=== PATIENT | male | born 1965 | race Caucasian/White ===

== ENCOUNTER 2019-05-26 19:48 | Inpatient (IN) ==
[2019-05-26] MEDS ORDERED: 0.9 % Sodium Chloride 1,000 ML IVC ONE (20:08)
[2019-05-26] MEDS ORDERED: Isovue-370 500 ML BOTTLE IVP ONE (20:08)
[2019-05-26 20:38] LABS: Basophils % 0.4 %; Eosinophils # 0.3 K/mcL (0.0-0.6); Eosinophils % 3.1 %; Hemoglobin 13.1 g/dL (12.9-16.9); Immature Granulocytes % 0.3 % (0-4); Lymphocytes # 1.7 K/mcL (0.6-4.6); Lymphocytes % 18.4 %; Mean Corpuscular HGB Conc 30.5 g/dL (31.6-35.5); Mean Corpuscular Hemoglobin 27.4 pg (28.0-33.3); Monocytes # 0.8 K/mcL (0.0-1.3); Monocytes % 8.3 %; Neutrophils # 6.5 K/mcL (1.6-8.9); Platelet Count 197 K/mcL (140-400); Red Blood Count 4.78 M/mcL (4.19-5.50); Red Cell Distribution Width 14.5 % (11.5-14.5); Segmented Neutrophils % 69.5 %; White Blood Count 9.4 K/mcL (4.3-11.1)
[2019-05-26 20:49] LABS: Bilirubin,Urine Negative (Negative); Blood,Urine Negative (Negative); Clarity,Urine Clear (Clear); Color,Urine Yellow (Yellow); Glucose,Urine (UA) Normal (Normal); Ketones,Urine Negative (Negative); Leukocyte Esterase,Urine Negative (Negative); Nitrite,Urine Negative (Negative); Protein,Urine Negative (Neg-Trace); Specific Gravity,Urine 1.024 (1.010-1.025); Urobilinogen,Urine Normal (Normal)
[2019-05-26 20:59] LABS: Alanine Aminotransferase 16 Units/L (7-52); Albumin 3.6 g/dL (3.5-5.7); Albumin/Globulin Ratio 1.2 (1.1-2.2); Alkaline Phosphatase 62 Units/L (34-104); Aspartate Amino Transferase 17 Units/L (13-39); BUN/Creatinine Ratio 19 (6-26); Bilirubin,Direct 0.1 mg/dL (0.0-0.2); Bilirubin,Indirect 0.3 mg/dL (0.0-1.2); Bilirubin,Total 0.4 mg/dL (0.3-1.0); Blood Urea Nitrogen 19 mg/dL (6-20); Calcium 9.1 mg/dL (8.6-10.3); Carbon Dioxide 26 mEq/L (23-29); Chloride 103 mEq/L (98-107); Globulin 2.9 g/dL (2.4-3.5); Glucose 99 mg/dL (70-105); Osmolality,Calculated 284 (280-300); Potassium 3.6 mEq/L (3.5-5.1); Sodium 136 mEq/L (136-145); Total Protein 6.5 g/dL (6.4-8.9); eGFR For African Americans > 60 (> 60); eGFR For Non-African Americans > 60 (> 60)
--- NOTE | 2019-05-26 22:15 | Emergency Department Note ---
Disposition Clinical Impression: Cellulitis of abdominal wall Disposition: Admitted As Inpatient Condition: Good Referrals: Eileen Valdes MD [Primary Care Provider] - Forms: ED Satisfaction Letter, Work/School Release Time of Disposition: 22:37 General Adult HPI - General Chief complaint: ED General Medical Stated complaint: Cellulitis in lower ABD Time Seen by Provider: 05/26/19 19:55 Source: patient Limitations: no limitations Nursing Notes Reviewed: Yes Vital Signs Reviewed: Yes - History of Present Illness HPI Narrative: Male patient presenting to emergency department complaining of cellulitis to his pannus for over a month. Patient has been on Keflex. He states his last dose is tomorrow. He reports that the area is getting larger. He is not a diabetic. He does not have a history of difficulty healing. Patient is obese. He denies any fevers or chills. He denies any shortness of breath or chest pain. He denies any weeping to this area. He denies any trauma to this area. Pain Scale: 0 - Related Data Home Medications Medication Instructions Recorded Confirmed Aspirin [Lo-Dose Aspirin EC] 81 mg PO DAILY 04/17/19 04/17/19 Furosemide [Lasix] 20 mg PO DAILY 04/17/19 04/17/19 Losartan Potassium [Cozaar] 100 mg PO DAILY 04/17/19 04/17/19 Oxycodone HCl/Acetaminophen 1 each PO Q6H PRN 04/17/19 04/17/19 [Percocet 7.5-325 mg Tablet] Potassium Chloride [K-Tab ER] 10 meq PO DAILY 04/17/19 04/17/19 Ropinirole HCl 10 mg PO HS 04/17/19 04/17/19 Tamsulosin [Flomax] 0.4 mg PO DAILY 04/17/19 04/17/19 Zolpidem Tartrate [Edluar] 10 mg SL HS PRN 04/17/19 04/17/19 raNITIdine HCl [Zantac] 150 mg PO DAILY 04/17/19 04/17/19 Previous Rx's Medication Instructions Recorded Ascorbic Acid [Vitamin C] 500 mg PO DAILY@0630 #30 tablet 03/27/19 Ferrous Sulfate 325 mg PO DAILY@0630 #30 tablet 03/27/19 cephALEXin [Keflex] 500 mg PO QID #28 capsule 05/20/19 Allergies Allergy/AdvReac Type Severity Reaction Status Date / Time No Known Allergies Allergy Verified 01/14/19 13:23 All systems ED: reviewed and negative except as stated. Review of Systems: As Per HPI Constitutional: Denies: fever, chills Cardiovascular: Denies: chest pain Respiratory: Denies: cough, dyspnea Gastrointestinal: Reports: abdominal pain (Discomfort to the pannus where he has cellulitis.). Denies: nausea, vomiting, diarrhea, hematemesis, melena, hematochezia Genitourinary: Denies: urgency, dysuria, frequency, hematuria Musculoskeletal: Denies: back pain, neck pain Integumentary: Reports: other (Cellulitic changes to the past. Reports getting worse.) Neurological: Denies: weakness Past Medical History - Past Medical History Attestation: Yes The following information was validated with the patient. Source: patient Medical history: Reports: GERD, hyperlipidemia, hypertension, kidney stones Surgical history: Reports: appendectomy Psychiatric history: Reports: anxiety, depression - Social History Smoking Status: Never smoker Smokeless Tobacco Status: Yes Alcohol use: Reports: none Drug use: Reports: none Physical Exam - General Limitations: no limitations General appearance: alert, in no apparent distress - Head Head exam: atraumatic, normocephalic, normal inspection - Eye Eye exam: Present: normal appearance, PERRL, EOMI - ENT ENT exam: normal exam, normal oropharynx, mucous membranes moist - Neck Neck exam: Present: normal inspection, full ROM, trachea midline - Chest Chest inspection: Present: normal inspection, symmetric chest wall rise - Respiratory Respiratory exam: Present: normal lung sounds bilaterally. Absent: respiratory distress, accessory muscle use - Cardiovascular Cardiovascular exam: Present: regular rate, normal rhythm, normal heart sounds - Abdominal Exam Abdominal exam: Present: soft, tenderness. Absent: distention, guarding, ch[place] ound, rigidity, organomegaly (2 Panorex where her cellulitis is present. No pain to deep palpation.), Tse's sign, Rovsing's sign, tenderness at McBurney's Point - Extremities Exam Extremities exam: Present: normal inspection, full ROM, normal capillary refill. Absent: tenderness, pedal edema - Back Exam Back exam: Present: normal inspection, full ROM. Absent: tenderness - Neurological Exam Neurological exam: Present: alert, oriented X3 - Psychiatric Psychiatric exam: Present: normal affect, normal mood - Skin Skin exam: Present: warm, dry, intact, other (Cellulitic changes to the pannus. Erythema. Pitting. ) Course Course Narrative: Patient with cellulitis to the pannus. Labs are stable. No fever. Has been on outpatient antibiotics and states that it is getting worse. CT shows no signs of abscess. We will admit patient to the hospital for failed outpatient therapy of the cellulitis. Patient is agreeable with this plan. Vitals are stable. Vital Signs Temperature 98.1 F 05/26/19 19:49 Pulse Rate 90 05/26/19 19:49 Respiratory Rate 24 05/26/19 19:49 Blood Pressure 143/82 05/26/19 19:49 O2 Sat by Pulse Oximetry 93 05/26/19 19:49 Temperature 98.1 F 05/26/19 19:49 Pulse Rate 81 05/26/19 22:23 Respiratory Rate 18 05/26/19 22:23 Blood Pressure 114/63 05/26/19 22:23 O2 Sat by Pulse Oximetry 97 05/26/19 22:23 Oxygen Delivery Oxygen Delivery Room Air Medical Decision Making - Medical Records Medical records reviewed: Yes I reviewed the patient's medical records. - Lab Data Lab results reviewed: Yes I reviewed the patient's lab results. Result diagrams: 05/26/19 20:24 05/26/19 20:24 Lab Results 05/26/19 05/26/19 05/26/19 Range/Units 20:24 20:24 20:24 WBC 9.4 (4.3-11.1) K/mcL RBC 4.78 (4.19-5.50) M/mcL Hgb 13.1 (12.9-16.9) g/dL Hct 43.0 (37.5-50.1) % MCV 90.0 (83.0-100.0) fL MCH 27.4 L (28.0-33.3) pg MCHC 30.5 L (31.6-35.5) g/dL RDW 14.5 (11.5-14.5) % Plt Count 197 (140-400) K/mcL MPV 10.0 (9.4-12.4) fL Immature Gran % 0.3 (0-4) % Seg Neutrophils % 69.5 % Lymphocytes % 18.4 % Monocytes % 8.3 % Eosinophils % 3.1 % Basophils % 0.4 % Neutrophils # 6.5 (1.6-8.9) K/mcL Lymphocytes # 1.7 (0.6-4.6) K/mcL Monocytes # 0.8 (0.0-1.3) K/mcL Eosinophils # 0.3 (0.0-0.6) K/mcL Basophils # 0.0 (0.0-0.2) K/mcL Sodium 136 (136-145) mEq/L Potassium 3.6 (3.5-5.1) mEq/L Chloride 103 (98-107) mEq/L Carbon Dioxide 26 (23-29) mEq/L BUN 19 (6-20) mg/dL Creatinine 0.98 (0.70-1.30) mg/dL Est GFR ( Amer) > 60 (> 60) Est GFR (Non-Af Amer) > 60 (> 60) BUN/Creatinine Ratio 19 (6-26) Glucose 99 (70-105) mg/dL Calculated Osmolality 284 (280-300) Lactic Acid 0.7 (0.5-2.2) mmol/L Calcium 9.1 (8.6-10.3) mg/dL Total Bilirubin 0.4 (0.3-1.0) mg/dL Direct Bilirubin 0.1 (0.0-0.2) mg/dL Indirect Bilirubin 0.3 (0.0-1.2) mg/dL AST 17 (13-39) Units/L ALT 16 (7-52) Units/L Alkaline Phosphatase 62 (34-104) Units/L Serum Total Protein 6.5 (6.4-8.9) g/dL Albumin 3.6 (3.5-5.7) g/dL Globulin 2.9 (2.4-3.5) g/dL Albumin/Globulin Ratio 1.2 (1.1-2.2) Urine Color (Yellow) Urine Clarity (Clear) Urine pH (5.0-8.0) pH Units Ur Specific [place] (1.010-1.025) Urine Protein (Neg-Trace) mg/dL Urine Glucose (UA) (Normal) mg/dL Urine Ketones (Negative) mg/dL Urine Blood (Negative) Urine Nitrite (Negative) Urine Bilirubin (Negative) Urine Urobilinogen (Normal) mg/dL Ur Leukocyte Esterase (Negative) Ur Culture Indicated? (NO) 05/26/19 Range/Units 20:38 WBC (4.3-11.1) K/mcL RBC (4.19-5.50) M/mcL Hgb (12.9-16.9) g/dL Hct (37.5-50.1) % MCV (83.0-100.0) fL MCH (28.0-33.3) pg MCHC (31.6-35.5) g/dL RDW (11.5-14.5) % Plt Count (140-400) K/mcL MPV (9.4-12.4) fL Immature Gran % (0-4) % Seg Neutrophils % % Lymphocytes % % Monocytes % % Eosinophils % % Basophils % % Neutrophils # (1.6-8.9) K/mcL Lymphocytes # (0.6-4.6) K/mcL Monocytes # (0.0-1.3) K/mcL Eosinophils # (0.0-0.6) K/mcL Basophils # (0.0-0.2) K/mcL Sodium (136-145) mEq/L Potassium (3.5-5.1) mEq/L Chloride (98-107) mEq/L Carbon Dioxide (23-29) mEq/L BUN (6-20) mg/dL Creatinine (0.70-1.30) mg/dL Est GFR ( Amer) (> 60) Est GFR (Non-Af Amer) (> 60) BUN/Creatinine Ratio (6-26) Glucose (70-105) mg/dL Calculated Osmolality (280-300) Lactic Acid (0.5-2.2) mmol/L Calcium (8.6-10.3) mg/dL Total Bilirubin (0.3-1.0) mg/dL Direct Bilirubin (0.0-0.2) mg/dL Indirect Bilirubin (0.0-1.2) mg/dL AST (13-39) Units/L ALT (7-52) Units/L Alkaline Phosphatase (34-104) Units/L Serum Total Protein (6.4-8.9) g/dL Albumin (3.5-5.7) g/dL Globulin (2.4-3.5) g/dL Albumin/Globulin Ratio (1.1-2.2) Urine Color Yellow (Yellow) Urine Clarity Clear (Clear) Urine pH 6.0 (5.0-8.0) pH Units Ur Specific [place] 1.024 (1.010-1.025) Urine Protein Negative (Neg-Trace) mg/dL Urine Glucose (UA) Normal (Normal) mg/dL Urine Ketones Negative (Negative) mg/dL Urine Blood Negative (Negative) Urine Nitrite Negative (Negative) Urine Bilirubin Negative (Negative) Urine Urobilinogen Normal (Normal) mg/dL Ur Leukocyte Esterase Negative (Negative) Ur Culture Indicated? NO (NO) - Radiology Data Radiology results reviewed: Yes I reviewed the patient's radiology results. Abdomen/Pelvis CT 05/26/19 20:08 IMPRESSION: 1. No acute intra-abdominal abnormality. 2. Stable cellulitis of the pannus. No loculated fluid collections to suggest abscess. 3. Status post appendectomy. 4. Diverticulosis. D/ / 05/26/2019 21:57:06 Gypsy Khan MD / shabana Interpreting Provider: Gypsy Khan MD - EKG Data EKG #1 EKG attestation: Yes I reviewed and interpreted this EKG. EKG results narrative: Normal sinus rhythm at a rate 88. MS interval is 181. QRS duration is 102. QT is 367. QTC is 444. No signs of acute ischemia. Good R-wave progression. No signs of WPW or Brugada. No significant change from previous EKG dated 04/17/2019.
--- NOTE | 2019-05-26 22:26 | Emergency Department Note ---
Disposition Clinical Impression: Cellulitis of abdominal wall Disposition: Admitted As Inpatient Condition: Good Referrals: Eileen Valdes MD [Primary Care Provider] - Forms: ED Satisfaction Letter, Work/School Release Time of Disposition: 23:33 General Adult HPI - General Chief complaint: ED General Medical Stated complaint: Cellulitis in lower ABD Time Seen by Provider: 05/26/19 19:55 Source: patient Limitations: no limitations - History of Present Illness Pain Scale: 5 - Related Data Home Medications Medication Instructions Recorded Confirmed Aspirin [Lo-Dose Aspirin EC] 81 mg PO DAILY 04/17/19 04/17/19 Furosemide [Lasix] 20 mg PO DAILY 04/17/19 04/17/19 Losartan Potassium [Cozaar] 100 mg PO DAILY 04/17/19 04/17/19 Oxycodone HCl/Acetaminophen 1 each PO Q6H PRN 04/17/19 04/17/19 [Percocet 7.5-325 mg Tablet] Potassium Chloride [K-Tab ER] 10 meq PO DAILY 04/17/19 04/17/19 Ropinirole HCl 10 mg PO HS 04/17/19 04/17/19 Tamsulosin [Flomax] 0.4 mg PO DAILY 04/17/19 04/17/19 Zolpidem Tartrate [Edluar] 10 mg SL HS PRN 04/17/19 04/17/19 raNITIdine HCl [Zantac] 150 mg PO DAILY 04/17/19 04/17/19 Previous Rx's Medication Instructions Recorded Ascorbic Acid [Vitamin C] 500 mg PO DAILY@0630 #30 tablet 03/27/19 Ferrous Sulfate 325 mg PO DAILY@0630 #30 tablet 03/27/19 cephALEXin [Keflex] 500 mg PO QID #28 capsule 05/20/19 Allergies Allergy/AdvReac Type Severity Reaction Status Date / Time No Known Allergies Allergy Verified 01/14/19 13:23 Past Medical History - Past Medical History Medical history: Reports: GERD, hyperlipidemia, hypertension, kidney stones Surgical history: Reports: appendectomy Psychiatric history: Reports: anxiety, depression - Social History Smoking Status: Never smoker Smokeless Tobacco Status: Yes Alcohol use: Reports: none Drug use: Reports: none Physical Exam - General Limitations: no limitations General appearance: alert, in no apparent distress Course Vital Signs Temperature 98.1 F 05/26/19 19:49 Pulse Rate 90 05/26/19 19:49 Respiratory Rate 24 05/26/19 19:49 Blood Pressure 143/82 05/26/19 19:49 O2 Sat by Pulse Oximetry 93 05/26/19 19:49 Temperature 98.1 F 05/26/19 19:49 Pulse Rate 80 05/26/19 20:53 Respiratory Rate 18 05/26/19 20:53 Blood Pressure 112/68 05/26/19 20:53 O2 Sat by Pulse Oximetry 97 05/26/19 20:53 Oxygen Delivery Oxygen Delivery Room Air Medical Decision Making - Lab Data Result diagrams: 05/26/19 20:24 05/26/19 20:24 Lab Results 05/26/19 05/26/19 05/26/19 Range/Units 20:24 20:24 20:24 WBC 9.4 (4.3-11.1) K/mcL RBC 4.78 (4.19-5.50) M/mcL Hgb 13.1 (12.9-16.9) g/dL Hct 43.0 (37.5-50.1) % MCV 90.0 (83.0-100.0) fL MCH 27.4 L (28.0-33.3) pg MCHC 30.5 L (31.6-35.5) g/dL RDW 14.5 (11.5-14.5) % Plt Count 197 (140-400) K/mcL MPV 10.0 (9.4-12.4) fL Immature Gran % 0.3 (0-4) % Seg Neutrophils % 69.5 % Lymphocytes % 18.4 % Monocytes % 8.3 % Eosinophils % 3.1 % Basophils % 0.4 % Neutrophils # 6.5 (1.6-8.9) K/mcL Lymphocytes # 1.7 (0.6-4.6) K/mcL Monocytes # 0.8 (0.0-1.3) K/mcL Eosinophils # 0.3 (0.0-0.6) K/mcL Basophils # 0.0 (0.0-0.2) K/mcL Sodium 136 (136-145) mEq/L Potassium 3.6 (3.5-5.1) mEq/L Chloride 103 (98-107) mEq/L Carbon Dioxide 26 (23-29) mEq/L BUN 19 (6-20) mg/dL Creatinine 0.98 (0.70-1.30) mg/dL Est GFR ( Amer) > 60 (> 60) Est GFR (Non-Af Amer) > 60 (> 60) BUN/Creatinine Ratio 19 (6-26) Glucose 99 (70-105) mg/dL Calculated Osmolality 284 (280-300) Lactic Acid 0.7 (0.5-2.2) mmol/L Calcium 9.1 (8.6-10.3) mg/dL Total Bilirubin 0.4 (0.3-1.0) mg/dL Direct Bilirubin 0.1 (0.0-0.2) mg/dL Indirect Bilirubin 0.3 (0.0-1.2) mg/dL AST 17 (13-39) Units/L ALT 16 (7-52) Units/L Alkaline Phosphatase 62 (34-104) Units/L Serum Total Protein 6.5 (6.4-8.9) g/dL Albumin 3.6 (3.5-5.7) g/dL Globulin 2.9 (2.4-3.5) g/dL Albumin/Globulin Ratio 1.2 (1.1-2.2) Urine Color (Yellow) Urine Clarity (Clear) Urine pH (5.0-8.0) pH Units Ur Specific [place] (1.010-1.025) Urine Protein (Neg-Trace) mg/dL Urine Glucose (UA) (Normal) mg/dL Urine Ketones (Negative) mg/dL Urine Blood (Negative) Urine Nitrite (Negative) Urine Bilirubin (Negative) Urine Urobilinogen (Normal) mg/dL Ur Leukocyte Esterase (Negative) Ur Culture Indicated? (NO) 05/26/19 Range/Units 20:38 WBC (4.3-11.1) K/mcL RBC (4.19-5.50) M/mcL Hgb (12.9-16.9) g/dL Hct (37.5-50.1) % MCV (83.0-100.0) fL MCH (28.0-33.3) pg MCHC (31.6-35.5) g/dL RDW (11.5-14.5) % Plt Count (140-400) K/mcL MPV (9.4-12.4) fL Immature Gran % (0-4) % Seg Neutrophils % % Lymphocytes % % Monocytes % % Eosinophils % % Basophils % % Neutrophils # (1.6-8.9) K/mcL Lymphocytes # (0.6-4.6) K/mcL Monocytes # (0.0-1.3) K/mcL Eosinophils # (0.0-0.6) K/mcL Basophils # (0.0-0.2) K/mcL Sodium (136-145) mEq/L Potassium (3.5-5.1) mEq/L Chloride (98-107) mEq/L Carbon Dioxide (23-29) mEq/L BUN (6-20) mg/dL Creatinine (0.70-1.30) mg/dL Est GFR ( Amer) (> 60) Est GFR (Non-Af Amer) (> 60) BUN/Creatinine Ratio (6-26) Glucose (70-105) mg/dL Calculated Osmolality (280-300) Lactic Acid (0.5-2.2) mmol/L Calcium (8.6-10.3) mg/dL Total Bilirubin (0.3-1.0) mg/dL Direct Bilirubin (0.0-0.2) mg/dL Indirect Bilirubin (0.0-1.2) mg/dL AST (13-39) Units/L ALT (7-52) Units/L Alkaline Phosphatase (34-104) Units/L Serum Total Protein (6.4-8.9) g/dL Albumin (3.5-5.7) g/dL Globulin (2.4-3.5) g/dL Albumin/Globulin Ratio (1.1-2.2) Urine Color Yellow (Yellow) Urine Clarity Clear (Clear) Urine pH 6.0 (5.0-8.0) pH Units Ur Specific [place] 1.024 (1.010-1.025) Urine Protein Negative (Neg-Trace) mg/dL Urine Glucose (UA) Normal (Normal) mg/dL Urine Ketones Negative (Negative) mg/dL Urine Blood Negative (Negative) Urine Nitrite Negative (Negative) Urine Bilirubin Negative (Negative) Urine Urobilinogen Normal (Normal) mg/dL Ur Leukocyte Esterase Negative (Negative) Ur Culture Indicated? NO (NO) Attestation Statement - Attestation Attestation: I reviewed the residents documentation and agree with the residents assessment and plan of care. I have personally had face to face time with the patient. (Brief History, Brief Exam, and MDM) I personally supervised and was present for the pal[place]/critical portions of the following procedures completed by the resident: EKG 53 year old male presents to the eD with complaints of pannus cellulitis which has not improved with keflex therapy. We have done a CT scan it appears to be stable without abscess formation. We will admit to medicine for pannus cellutlisi that has failed outpatient therapy
--- NOTE | 2019-05-26 23:47 | Internal Med History&Physical ---
Date of Encounter: 05/26/19 Time of Encounter: 23:47 Internal Medicine - H&P: HPI History of present illness: Mr. Macias is a 53 year old male with past medical history of morbid obtain CT presenting to the emergency department with acute cellulitis of pannus. The patient was treated with Keflex event as as an outpatient was no significant improvement so he decided to seek medical attention. The patient denied chills, fever, nausea, vomiting, constipation, abdominal pain, change of urinary habit or bowel habits . A CAT scan of the abdomen was obtained and revealed Stable cellulitis of the pannus. No loculated fluid collections to suggest abscess. The patient was started in empiric antibiotics with vancomycin and was admitted for further evaluation and management. Past Med Surg Social Fam HX - Past Medical History Medical history: GERD, hyperlipidemia, hypertension, kidney stones Psychiatric history: anxiety, depression - Past Surgical History Surgical History: appendectomy Additional surgical history: knee scope. carpal tunnel bilateral. kidney stone removed - Social History Smoking Status: Never smoker Smokeless Tobacco Status: Yes Alcohol use: none Drug use: none Internal Medicine - H&P: Meds Ferrous Sulfate 325 mg PO DAILY@0630 #30 tablet 03/27/19 [Rx] Aspirin [Lo-Dose Aspirin EC] 81 mg PO DAILY 04/17/19 [History] Furosemide [Lasix] 20 mg PO DAILY 04/17/19 [History] Losartan Potassium [Cozaar] 100 mg PO DAILY 04/17/19 [History] Oxycodone HCl/Acetaminophen [Percocet 7.5-325 mg Tablet] 1 each PO Q6H PRN 04/17/19 [History] Potassium Chloride [K-Tab ER] 10 meq PO DAILY 04/17/19 [History] Ropinirole HCl 10 mg PO HS 04/17/19 [History] Tamsulosin [Flomax] 0.4 mg PO DAILY 04/17/19 [History] Zolpidem Tartrate [Edluar] 10 mg SL HS PRN 04/17/19 [History] raNITIdine HCl [Zantac] 150 mg PO DAILY 04/17/19 [History] Allergy/AdvReac Type Severity Reaction Status Date / Time No Known Allergies Allergy Verified 01/14/19 13:23 All Systems PM: A 10-system review of systems was performed and is negative for pertinent findings except as documented above in the HPI. - Constitutional Vitals: Temp Pulse Resp BP Pulse Ox 98.1 F 80 20 117/81 96 05/26/19 19:49 05/26/19 23:14 05/26/19 23:14 05/26/19 23:14 05/26/19 23:14 - Head Head exam: Present: atraumatic, normocephalic - Eye Eye exam: Present: PERRL, conjuntiva pink, sclera anicteric Pupils: Present: PERRL - Neck Neck exam general surgery: Present: supple, trachea midline. Absent: lymphadenopathy - Respiratory Respiratory exam: Present: CTAB. Absent: accessory muscle use, rales, rhonchi, wheezes - Cardiovascular Cardiovascular exam: Present: RRR, +S1, +S2. Absent: diastolic murmur, gallop, rubs, systolic murmur - GI/Abdominal GI/Abdominal exam: Present: normal bowel sounds, soft, no peritoneal signs. Absent: distended, tenderness - Extremities Exam Extremities exam: Present: warm, radial pulses palpable and symmetrical. Absent: calf tenderness, cyanotic, pedal edema - Neurological Exam Neurological exam: Present: CN II-XII intact, oriented X3, no focal deficits. Absent: pronater drift, facial droop, speech deficit - Skin Skin exam: Present: dry, intact Internal Med - H&P Results - Labs CBC & Chem 7: 05/26/19 20:24 05/26/19 20:24 Labs: Short CBC 05/26/19 Range/Units 20:24 WBC 9.4 (4.3-11.1) K/mcL Hgb 13.1 (12.9-16.9) g/dL Hct 43.0 (37.5-50.1) % Plt Count 197 (140-400) K/mcL Neutrophils # 6.5 (1.6-8.9) K/mcL BMP 05/26/19 20:24 Sodium 136 Potassium 3.6 Chloride 103 Carbon Dioxide 26 BUN 19 Creatinine 0.98 Glucose 99 Calcium 9.1 Liver Function 05/26/19 Range/Units 20:24 Total Bilirubin 0.4 (0.3-1.0) mg/dL Direct Bilirubin 0.1 (0.0-0.2) mg/dL AST 17 (13-39) Units/L ALT 16 (7-52) Units/L Alkaline Phosphatase 62 (34-104) Units/L Albumin 3.6 (3.5-5.7) g/dL Urine 05/26/19 Range/Units 20:38 Urine Color Yellow (Yellow) Urine Clarity Clear (Clear) Urine pH 6.0 (5.0-8.0) pH Units Ur Specific [place] 1.024 (1.010-1.025) Urine Protein Negative (Neg-Trace) mg/dL Urine Glucose (UA) Normal (Normal) mg/dL - Impressions ITS Impressions Abdomen/Pelvis CT 05/26/19 20:08 IMPRESSION: 1. No acute intra-abdominal abnormality. 2. Stable cellulitis of the pannus. No loculated fluid collections to suggest abscess. 3. Status post appendectomy. 4. Diverticulosis. D/ / 05/26/2019 21:57:06 Gypsy Khan MD / shabana Interpreting Provider: Gypsy Khan MD - Assessment and Plan (1) Cellulitis of abdominal wall Current Visit: Yes Status: Acute Assessment and plan: We will start the patient on antibiotic with vancomycin. Cultures was obtained and pending. (2) Hypertension Current Visit: No Status: Chronic Assessment and plan: We will continue home antihypertensive medication continue to monitor blood pressure while inpatient and adjust regimen accordingly if indicated Qualifiers: Hypertension type: essential hypertension Qualified Code(s): I10 - Essential (primary) hypertension (3) Anemia Current Visit: No Status: Acute Assessment and plan: Hemoglobin stable we will continue to monitor H&H Qualifiers: Anemia type: iron deficiency Iron deficiency anemia type: unspecified iron deficiency Qualified Code(s): D50.9 - Iron deficiency anemia, unspecified (4) RLS (restless legs syndrome) Current Visit: No Status: Chronic (5) Insomnia Current Visit: No Status: Acute Qualifiers: Insomnia type: unspecified Qualified Code(s): G47.00 - Insomnia, unspecified - Time Spent With Patient Total time spent is greater than 50% in coordination of care (as documented) at patient's floor/unit and/or counseling patient:
[2019-05-27] MEDS ORDERED: *HR* HYDROcodone/Acet 5/325 mg TABLET PO PRN (01:12)
[2019-05-27] MEDS ORDERED: Acetaminophen 325 MG TABLET PO PRN (01:12)
[2019-05-27] MEDS ORDERED: *HR* OxyCODONE/APAP 7.5/325 TABLET PO PRN ×3 (01:13→15:46)
[2019-05-27] MEDS ORDERED: Naloxone 0.4 MG/ML INJ IVP PRN (01:13)
[2019-05-27] MEDS ORDERED: Ondansetron 4 MG/2 ML VIAL IVP PRN (01:13)
[2019-05-27 07:23] LABS: Basophils % 0.4 %; Eosinophils # 0.3 K/mcL (0.0-0.6); Eosinophils % 2.9 %; Hematocrit 44.7 % (37.5-50.1); Hemoglobin 13.7 g/dL (12.9-16.9); Immature Granulocytes % 0.7 % (0-4); Lymphocytes # 1.7 K/mcL (0.6-4.6); Lymphocytes % 18.5 %; Mean Corpuscular HGB Conc 30.6 g/dL (31.6-35.5); Mean Corpuscular Volume 88.2 fL (83.0-100.0); Mean Platelet Volume 10.5 fL (9.4-12.4); Monocytes # 0.9 K/mcL (0.0-1.3); Monocytes % 10.4 %; Neutrophils # 6.1 K/mcL (1.6-8.9); Platelet Count 218 K/mcL (140-400); Red Blood Count 5.07 M/mcL (4.19-5.50); Red Cell Distribution Width 14.6 % (11.5-14.5); Segmented Neutrophils % 67.1 %; White Blood Count 9.1 K/mcL (4.3-11.1)
[2019-05-27 07:41] LABS: INR 1.1; Prothrombin Time 12.3 Seconds (9.4-12.1)
[2019-05-27 07:43] LABS: Activated Partial Thrombo Time 31.6 Seconds (26.0-36.0)
[2019-05-27 07:46] LABS: Alanine Aminotransferase 20 Units/L (7-52); Albumin 3.9 g/dL (3.5-5.7); Albumin/Globulin Ratio 1.2 (1.1-2.2); Alkaline Phosphatase 65 Units/L (34-104); Aspartate Amino Transferase 21 Units/L (13-39); BUN/Creatinine Ratio 18 (6-26); Bilirubin,Total 0.5 mg/dL (0.3-1.0); Blood Urea Nitrogen 18 mg/dL (6-20); Calcium 9.3 mg/dL (8.6-10.3); Carbon Dioxide 25 mEq/L (23-29); Chloride 101 mEq/L (98-107); Chol/HDL Ratio 3.6 (0-4.9); Cholesterol 131 mg/dL (< 200); Globulin 3.2 g/dL (2.4-3.5); Glucose 103 mg/dL (70-105); HDL Cholesterol 36 mg/dL (40-59); LDL Cholesterol,Calculated 79 mg/dL (0-99); Magnesium 2.2 mg/dL (1.6-2.6); Osmolality,Calculated 286 (280-300); Phosphorous 3.5 mg/dL (2.7-4.5); Sodium 137 mEq/L (136-145); Total Protein 7.1 g/dL (6.4-8.9); Triglycerides 79 mg/dL (< 150); eGFR For African Americans > 60 (> 60); eGFR For Non-African Americans > 60 (> 60)
[2019-05-27] MEDS ORDERED: rOPINIRole 1 MG TABLET PO ONE (08:00)
[2019-05-27] MEDS ORDERED: rOPINIRole 1 MG TABLET PO SCH ×3 (09:00→21:00)
[2019-05-27] MEDS: rOPINIRole 1 MG TABLET PO SCH ×2 (09:02→20:17)
[2019-05-27] MEDS: Furosemide 20 MG TABLET PO SCH (09:02)
[2019-05-27] MEDS: Famotidine 20 MG TABLET PO SCH (09:03)
--- NOTE | 2019-05-27 09:06 | Internal Med Progress Note ---
Hospitalist Progress Note - Encounter Date of Encounter: 05/27/19 Time of Encounter: 09:06 - Subjective Interval History: Patient lying in bed looking slightly uncomfortable upon entering the room. Patient states that that he is in is not very comfortable and is having a hard time finding a good way to use it. Patient states his redness and swelling of the abdomen have not increased in size since admission. He says the pain only occurs when being touched. Patient denies nausea, vomiting, diarrhea, chest pain, shortness of breath, leg swelling, fever, or chills. - Exam Vitals: Temp Pulse Resp BP Pulse Ox 97.8 F 84 14 114/75 96 05/27/19 06:22 05/27/19 06:22 05/27/19 06:22 05/27/19 06:22 05/27/19 06:22 Exam: Gen: Vitals noted. No acute distress. Eyes: anicteric sclerae, moist conjunctivae HENT: Atraumatic, normocephalic, oral mucosa moist Cardiac: RRR, no murmur, +S1/S2 Pulmonary: CTA bilaterally, no wheezes, rales or rhonchi, equal chest expansion Abdomen: soft, normal bowel sounds. Extremities: No evidence of lower extremity swelling. Full range of motion of all extremities. Skin: Extensive area of erythema that is warm to the touch above the pubis without induration or purulence. Neuro: No focal deficits. Moves all extremities. Psych: Appropriate mood and behavior. A&Ox3 - Assessment and Plan (1) Cellulitis of abdominal wall Current Visit: Yes Status: Acute Assessment and Plan: Patient treated with Keflex outpatient without significant improvement. Patient with a large area of diffuse erythema without purulence or induration above the pubis. Patient afebrile and without leukocytosis. CT scan 05/26 showing stable cellulitis of the pannus compared to CT 05/20. -1.25 g Vancomycin Q12H started 05/26 -2 g Cefazolin Q8hr started 05/27 -[place] 5 mg and Percocet 7.5 Q6H PRN for pain control. (2) Hypertension Current Visit: No Status: Chronic Assessment and Plan: BP stable since admission -Continue Losartan 100 mg daily (3) Anemia Current Visit: No Status: Acute Assessment and Plan: H&H stable since admission -Continue home Ferrous Sulfate 325 mg Daily (4) Insomnia Current Visit: No Status: Acute Assessment and Plan: Pt on Ambien 10 mg HS -Continue on home dose (5) RLS (restless legs syndrome) Current Visit: No Status: Chronic Assessment and Plan: Pt takes Requip 5 mg BID. -Continue home regimen. DVT Prophylaxis: Heparin SubQ - Summary of Assessment and Plan Summary of Assessment and Plan: 53-year-old male with past medical history of morbid obesity and hypertension. Presents with cellulitis of the pannus which was refractory to Keflex treatment prior to admission. CT scan 05/26 showing stable cellulitis from previous on 05/20. Patient placed on vancomycin 05/26 and cefazolin 05/27. - Time Spent with Patient Total time spent is greater than 50% in coordination of care (as documented) at patient's floor/unit and/or counseling patient: Internal Medicine: Result - Labs CBC & Chem 7: 05/27/19 06:41 05/27/19 06:41 Labs: Short CBC 05/26/19 05/27/19 Range/Units 20:24 06:41 WBC 9.4 9.1 (4.3-11.1) K/mcL Hgb 13.1 13.7 (12.9-16.9) g/dL Hct 43.0 44.7 (37.5-50.1) % Plt Count 197 218 (140-400) K/mcL Neutrophils # 6.5 6.1 (1.6-8.9) K/mcL BMP 05/26/19 05/27/19 20:24 06:41 Sodium 136 137 Potassium 3.6 4.0 Chloride 103 101 Carbon Dioxide 26 25 BUN 19 18 Creatinine 0.98 1.01 Glucose 99 103 Calcium 9.1 9.3 Liver Function 05/26/19 05/27/19 Range/Units 20:24 06:41 Total Bilirubin 0.4 0.5 (0.3-1.0) mg/dL Direct Bilirubin 0.1 (0.0-0.2) mg/dL AST 17 21 (13-39) Units/L ALT 16 20 (7-52) Units/L Alkaline Phosphatase 62 65 (34-104) Units/L Albumin 3.6 3.9 (3.5-5.7) g/dL Urine 05/26/19 Range/Units 20:38 Urine Color Yellow (Yellow) Urine Clarity Clear (Clear) Urine pH 6.0 (5.0-8.0) pH Units Ur Specific [place] 1.024 (1.010-1.025) Urine Protein Negative (Neg-Trace) mg/dL Urine Glucose (UA) Normal (Normal) mg/dL - ABG Interpretation ABG results: PT/INR, D-dimer PT 12.3 Seconds (9.4-12.1) H 05/27/19 06:41 - Impressions Impressions Abdomen/Pelvis CT 05/26/19 20:08 IMPRESSION: 1. No acute intra-abdominal abnormality. 2. Stable cellulitis of the pannus. No loculated fluid collections to suggest abscess. 3. Status post appendectomy. 4. Diverticulosis. D/ / 05/26/2019 21:57:06 Gypsy Khan MD / shabana Interpreting Provider: Gypsy Khan MD Consult Discharge Plan - Plan Referrals: Eileen Valdes MD [Primary Care Provider] - (2) Hypertension Qualifiers: Hypertension type: essential hypertension Qualified Code(s): I10 - Essential (primary) hypertension (3) Anemia Qualifiers: Anemia type: iron deficiency Iron deficiency anemia type: unspecified iron deficiency Qualified Code(s): D50.9 - Iron deficiency anemia, unspecified (4) Insomnia Qualifiers: Insomnia type: unspecified Qualified Code(s): G47.00 - Insomnia, unspecified
--- NOTE | 2019-05-27 15:39 | Electrocardiograph Report ---
[place] [id number] Test Date: 2019-05-26 Pat Name: Pito Macias Department: [id number] Room: 3A16 Gender: Supervisor Webbing: : 1965 Requested By: Charity Aguayo Order Number: [id number] Reading MD: Gloria Villalta Measurements Intervals [place] Rate: 88 P: 20 AK: 181 QRS: 69 QRSD: 102 T: 35 QT: 367 QTc: 444 Interpretive Statements Sinus rhythm Electronically Signed On 05-27-2019 15:37:34 EDT by Gloria Villalta
[2019-05-27] MEDS: *HR* Heparin 5,000 UNIT/ML VIAL SQ SCH ×2 (17:37→20:24)
[2019-05-28 05:22] LABS: Hematocrit 41.8 % (37.5-50.1); Hemoglobin 12.7 g/dL (12.9-16.9); Mean Corpuscular HGB Conc 30.4 g/dL (31.6-35.5); Mean Corpuscular Hemoglobin 27.5 pg (28.0-33.3); Mean Corpuscular Volume 90.5 fL (83.0-100.0); Mean Platelet Volume 10.4 fL (9.4-12.4); Platelet Count 193 K/mcL (140-400); Red Blood Count 4.62 M/mcL (4.19-5.50); Red Cell Distribution Width 14.6 % (11.5-14.5); White Blood Count 7.8 K/mcL (4.3-11.1)
[2019-05-28] MEDS: *HR* Heparin 5,000 UNIT/ML VIAL SQ SCH ×3 (05:22→21:10)
[2019-05-28 08:17] LABS: Blood Urea Nitrogen 16 mg/dL (6-20); Calcium 8.9 mg/dL (8.6-10.3); Carbon Dioxide 25 mEq/L (23-29); Chloride 102 mEq/L (98-107); Glucose 109 mg/dL (70-105); Osmolality,Calculated 284 (280-300); Potassium 3.8 mEq/L (3.5-5.1); Sodium 136 mEq/L (136-145)
--- NOTE | 2019-05-28 08:23 | Internal Med Progress Note ---
Hospitalist Progress Note - Encounter Date of Encounter: 05/28/19 Time of Encounter: 08:18 - Subjective Interval History: Patient lying in bed upon entering the room. Patient states he is feeling fine and does not have any pain at this moment. Patient believes his cellulitis has become less red and softer since yesterday. Patient denies chest pain, s hortness breath, nausea, vomiting, diarrhea, abdominal pain, fever, or chills. - Exam Vitals: Temp Pulse Resp BP Pulse Ox 97.6 F 76 18 108/69 93 05/28/19 07:02 05/28/19 07:02 05/28/19 07:02 05/28/19 07:02 05/28/19 07:02 Exam: Gen: Vitals noted. No acute distress. Eyes: anicteric sclerae, moist conjunctivae HENT: Atraumatic, normocephalic, oral mucosa moist Cardiac: RRR, no murmur, +S1/S2 Pulmonary: CTA bilaterally, no wheezes, rales or rhonchi, equal chest expansion Abdomen: soft, normal bowel sounds. Extremities: No evidence of lower extremity swelling. Full range of motion of all extremities. Skin: Extensive area of erythema that is warm to the touch above the pubis without induration or purulence. Appears softer and less erythematous today Neuro: No focal deficits. Moves all extremities. Psych: Appropriate mood and behavior. A&Ox3 - Assessment and Plan (1) Cellulitis of abdominal wall Current Visit: Yes Status: Acute Assessment and Plan: Patient treated with Keflex outpatient without significant improvement. Patient with a large area of diffuse erythema without purulence or induration above the pubis. Patient afebrile and without leukocytosis. CT scan 05/26 showing stable cellulitis of the pannus compared to CT 05/20. Appears less erythematous and softer -1.25 g Vancomycin Q12H day 3 -2 g Cefazolin Q8hr day 2 -[place] 5 mg and Percocet 7.5 Q6H PRN for pain control. (2) Hypertension Current Visit: No Status: Chronic Assessment and Plan: BP stable since admission -Continue Losartan 100 mg daily (3) Anemia Current Visit: No Status: Acute Assessment and Plan: H&H stable since admission -Continue home Ferrous Sulfate 325 mg Daily (4) Insomnia Current Visit: No Status: Acute Assessment and Plan: Pt on Ambien 10 mg HS -Continue on home dose (5) RLS (restless legs syndrome) Current Visit: No Status: Chronic Assessment and Plan: Pt takes Requip 5 mg BID. -Continue home regimen. DVT Prophylaxis: Heparin SubQ - Summary of Assessment and Plan Summary of Assessment and Plan: 53-year-old male with past medical history of morbid obesity and hypertension. Presents with cellulitis of the pannus which was refractory to Keflex treatment prior to admission. CT scan 05/26 showing stable cellulitis from previous on 05/20. Patient placed on vancomycin 05/26 and cefazolin 05/27. - Time Spent with Patient Total time spent is greater than 50% in coordination of care (as documented) at patient's floor/unit and/or counseling patient: Internal Medicine: Result - Labs CBC & Chem 7: 05/28/19 04:15 05/28/19 04:15 Labs: Short CBC 05/28/19 Range/Units 04:15 WBC 7.8 (4.3-11.1) K/mcL Hgb 12.7 L (12.9-16.9) g/dL Hct 41.8 (37.5-50.1) % Plt Count 193 (140-400) K/mcL BMP 05/28/19 04:15 Sodium 136 Potassium 3.8 Chloride 102 Carbon Dioxide 25 BUN 16 Glucose 109 H Calcium 8.9 - ABG Interpretation ABG results: PT/INR, D-dimer PT 12.3 Seconds (9.4-12.1) H 05/27/19 06:41 Consult Discharge Plan - Plan Referrals: Eileen Valdes MD [Primary Care Provider] - (2) Hypertension Qualifiers: Hypertension type: essential hypertension Qualified Code(s): I10 - Essential (primary) hypertension (3) Anemia Qualifiers: Anemia type: iron deficiency Iron deficiency anemia type: unspecified iron deficiency Qualified Code(s): D50.9 - Iron deficiency anemia, unspecified (4) Insomnia Qualifiers: Insomnia type: unspecified Qualified Code(s): G47.00 - Insomnia, unspecified
[2019-05-28] MEDS: rOPINIRole 1 MG TABLET PO SCH ×2 (09:29→20:01)
[2019-05-28] MEDS: Famotidine 20 MG TABLET PO SCH (09:30)
[2019-05-28] MEDS: Furosemide 20 MG TABLET PO SCH (09:30)
[2019-05-28 16:36] LABS: BUN/Creatinine Ratio 16 (6-26); eGFR For African Americans > 60 (> 60); eGFR For Non-African Americans > 60 (> 60)
[2019-05-29 04:11] LABS: Hematocrit 43.4 % (37.5-50.1); Hemoglobin 13.2 g/dL (12.9-16.9); Mean Corpuscular HGB Conc 30.4 g/dL (31.6-35.5); Mean Corpuscular Hemoglobin 26.9 pg (28.0-33.3); Mean Corpuscular Volume 88.4 fL (83.0-100.0); Mean Platelet Volume 10.2 fL (9.4-12.4); Platelet Count 195 K/mcL (140-400); Red Blood Count 4.91 M/mcL (4.19-5.50); Red Cell Distribution Width 14.6 % (11.5-14.5)
[2019-05-29 04:29] LABS: BUN/Creatinine Ratio 16 (6-26); Blood Urea Nitrogen 16 mg/dL (6-20); Calcium 8.9 mg/dL (8.6-10.3); Carbon Dioxide 26 mEq/L (23-29); Chloride 105 mEq/L (98-107); Glucose 113 mg/dL (70-105); Osmolality,Calculated 286 (280-300); Potassium 3.7 mEq/L (3.5-5.1); Sodium 137 mEq/L (136-145); eGFR For African Americans > 60 (> 60); eGFR For Non-African Americans > 60 (> 60)
[2019-05-29] MEDS: *HR* Heparin 5,000 UNIT/ML VIAL SQ SCH ×2 (05:33→13:26)
[2019-05-29] MEDS: Famotidine 20 MG TABLET PO SCH (08:21)
[2019-05-29] MEDS: Furosemide 20 MG TABLET PO SCH (08:21)
[2019-05-29] MEDS: rOPINIRole 1 MG TABLET PO SCH (08:21)
[2019-05-29] MEDS ORDERED: Furosemide 40 MG/4 ML VIAL IVP ONE (12:01)
--- NOTE | 2019-05-29 12:07 | Discharge Summary ---
- NOTES TO OUTPATIENT PROVIDER Notes to Outpatient Provider: Pt seen for pannus cellulitis after failing po abx therapy. Pt given 3 days of vancomycin and cefepime with significant improvement. Pt d/c with 7 days of amoxicillin and lasix increased to 40 mg Daily due to increased LE swelling. Will need a recheck for dose adjustment and BMP to check renal function. Orders not resulted at time of discharge: Pending orders 05/26/19 20:50 Culture,Blood [BC] Stat Date of Encounter: 05/29/19 Time of Encounter: 12:01 - Discharge Diagnosis (1) Cellulitis of abdominal wall Priority: Primary Status: Acute (2) Hypertension Priority: Secondary Status: Chronic Qualifiers: Hypertension type: essential hypertension Qualified Code(s): I10 - Essential (primary) hypertension (3) Anemia Priority: Secondary Status: Acute Qualifiers: Anemia type: iron deficiency Iron deficiency anemia type: unspecified iron deficiency Qualified Code(s): D50.9 - Iron deficiency anemia, unspecified (4) Insomnia Priority: Secondary Status: Acute Qualifiers: Insomnia type: unspecified Qualified Code(s): G47.00 - Insomnia, unspecified (5) RLS (restless legs syndrome) Priority: Secondary Status: Chronic Hospital course: Mr. Macias is a 53 year old male with past medical history significant for morbid obesity, hypertension, restless leg syndrome, insomnia, and hyperlipidemia. Patient presents with redness and swelling to the lower pannus. Patient had been diagnosed with cellulitis of the pannus and was treated outpatient with Keflex with no significant improvement so patient decided to come to the ER. CT scan of the abdomen revealed stable cellulitis of the pannus without loculated fluid that would be suggestive of an abscess. Patient was started on vancomycin and cefepime for cellulitis. Throughout the patient's stay he had no signs of sepsis with a normal white count and no fever. Patient was treated with antibiotic therapy for 3 days and showed significant clinical improvement. Patient to be sent home with 7 days of 875 mg amoxicillin twice a day for continued treatment. During patient's stay he developed a trace amount of edema to the lower extremities which his Lasix dose was increased from 20 to 40. Patient to follow-up with his primary care doctor in 1 week for BMP and recheck of the pannus cellulitis. Discharge discussed with: patient, family - Time Spent with Patient Total time spent providing and/or coordinating discharge services: Time spent: Greater than 30 minutes - Discharge Medications Prescriptions: New Amoxicillin 875 mg PO BID 7 Days #14 tablet Furosemide [Lasix] 40 mg PO DAILY 14 Days #14 tab Continued Zolpidem [Ambien] 10 mg PO HS PRN PRN Reason: Insomnia Tamsulosin [Flomax] 0.4 mg PO DAILY Losartan Potassium [Cozaar] 100 mg PO DAILY raNITIdine HCl [Zantac] 150 mg PO DAILY Potassium Chloride [K-Tab ER] 10 meq PO DAILY PRN PRN Reason: SWELLING Ropinirole HCl 10 mg PO HS Discontinued Cephalexin [Keflex] 500 mg PO QID Furosemide [Lasix] 20 mg PO DAILY PRN PRN Reason: SWELLING Home Medications: Losartan Potassium [Cozaar] 100 mg PO DAILY 04/17/19 [History] Potassium Chloride [K-Tab ER] 10 meq PO DAILY PRN 04/17/19 [History] Ropinirole HCl 10 mg PO HS 04/17/19 [History] Tamsulosin [Flomax] 0.4 mg PO DAILY 04/17/19 [History] raNITIdine HCl [Zantac] 150 mg PO DAILY 04/17/19 [History] Zolpidem [Ambien] 10 mg PO HS PRN 05/28/19 [History] Amoxicillin 875 mg PO BID 7 Days #14 tablet 05/29/19 [Rx] Furosemide [Lasix] 40 mg PO DAILY 14 Days #14 tab 05/29/19 [Rx] Allergies/Adverse Reactions: Allergy/AdvReac Type Severity Reaction Status Date / Time No Known Allergies Allergy Verified 05/28/19 12:20 Date of admission: 05/27/19 17:19 Primary care physician: Eileen Valdes Discharging clinician: Harrison Torres - Constitutional Vitals: Temp Pulse Resp BP Pulse Ox 98.2 F 66 16 101/64 95 05/29/19 06:47 05/29/19 06:47 05/29/19 06:47 05/29/19 06:47 05/29/19 06:47 General appearance: Present: A&O X 3, morbidly obese, pleasant, no acute distress, answers questions appropriately Exam: Gen: Vitals noted. No acute distress. Eyes: anicteric sclerae, moist conjunctivae HENT: Atraumatic, normocephalic, oral mucosa moist Cardiac: RRR, no murmur, +S1/S2 Pulmonary: CTA bilaterally, no wheezes, rales or rhonchi, equal chest expansion Abdomen: soft, normal bowel sounds. Extremities: Trace bilateral pitting lower extremity edema. Full range of mot ion of all extremities. Skin: Extensive area of erythema above the pubis without purulence. Appears softer and less erythematous today with small area of hardening directly above the pubis Neuro: No focal deficits. Moves all extremities. Psych: Appropriate mood and behavior. A&Ox3 - Patient Status Disposition: Home, Self-Care Condition: Good Functional capacity at discharge: independent ambulation Overall status at discharge: patient is back to baseline - Discharge Instructions Follow Up With: Eileen Valdes MD [Primary Care Provider] - Additional Instructions: Follow up with your primary care doctor in 1 week for recheck of rash - Diet and Activity Activity: increase activity as tolerated Diet: advance to your usual diet
[2019-05-29 15:00] VITALS: BP 99/63
[2019-05-29] MEDS ORDERED: Aminoglycoside Consult 1 EACH MC ONE (15:42)
== END 2019-05-29 15:43 | disposition home or self-care (01) | DRG 603 ==
LOC: EMEROOARM 19:48 → 3ANU 19:48 → SUATTDRO 23:09 → 3ANU 23:47
PROVIDERS: ADMIT Internal Medicine Nephrology; ATTEND Internal Medicine